=== PATIENT | male | born 1990 | race Caucasian/White ===

== ENCOUNTER 2021-09-14 18:11 | Emergency (ER) | payer OTHER ==
[~2021-09-14] VITALS: Ht 182.9 cm; Wt 93.0 kg
[2021-09-14 18:20] VITALS: BP 151/78
--- NOTE | 2021-09-14 19:12 | PHYS DOC ---
Past Medical History Additional Past Medical Histor: tongue cancer Past Surgical History: Other Additional Past Surgical Histo: tongue cancer, left lymph nodes General Adult EDM: Chief Complaint: LACERATION/AVULSION HPI: HPI: Patient is a 30-year-old male who presents to the emergency department reporting he was carrying steaks with a steak knife in his hand when the knife slipped and cut his left hand. Patient reports this happened his prior to arrival. Patient reports his last tetanus immunization is greater than 5 years ago. Patient denies numbness or tingling to his hands or fingers. Patient reports he covered the laceration site with a bandage and came straight to the emergency department. Patient denies other physical complaints or physical concerns. Patient states he is not homicidal, he is not suicidal. Review of Systems: Review of Systems: 14 body systems of review of systems have been reviewed. See HPI for pertinent positives and negative responses, otherwise all other systems are negative, nonpertinent or noncontributory. Constitutional: Negative except as outlined in HPI above. Skin: Negative except as outlined in HPI above. Eyes: Negative except as outlined in HPI above. HENT: Negative except as outlined in HPI above. Respiratory: Negative except as outlined in HPI above. Cardiovascular: Negative except as outlined in HPI above. GI: Negative except as outlined in HPI above. : Negative except as outlined in HPI above. Musculoskeletal: Negative except as outlined in HPI above. Integument: Negative except as outlined in HPI above. Neurologic: Negative except as outlined in HPI above. Endocrine: Negative except as outlined in HPI above. Lymphatic: Negative except as outlined in HPI above. Psychiatric: Negative except as outlined in HPI above. Heart Score: C/O Chest Pain: No Risk Factors: Risk Factors: DM, Current or recent (<one month) smoker, HTN, HLP, family history of CAD, obesity. Risk Scores: Score 0 - 3: 2.5% MACE over next 6 weeks - Discharge Home Score 4 - 6: 20.3% MACE over next 6 weeks - Admit for Clinical Observation Score 7 - 10: 72.7% MACE over next 6 weeks - Early Invasive Strategies Allergies: Allergies: Allergies Coded Allergies Type Severity Reaction Last Updated Verified Sulfa (Sulfonamide Antibiotics) Allergy Intermediate 09/14/21 Yes Physical Exam: PE: Constitutional: Well developed, well nourished, no acute distress, non-toxic appearance. 30-year-old male in no apparent distress. HENT: Normocephalic, atraumatic. Eyes: Conjunctiva normal, no discharge. Neck: Normal range of motion, no stridor. Cardiovascular: No cyanosis appreciated, distal cap refill less than 2 seconds. Lungs & Thorax: Patient is in no respiratory distress, no audible adventitious lung sounds appreciated. Abdomen: Nontender, no abnormalities noted. Skin: Warm, dry, no erythema, no rash. See extremity note for focused skin examination Back: No tenderness, no deformities. Extremities: No tenderness, no cyanosis, no clubbing, ROM intact, no edema. Except for left palm there is a partial-skin thickness 3.2 cm laceration over the thenar eminence, full AROM/PROM of all digits, distal cap refills less than 2 seconds equal bilateral upper extremities, 2+ radial pulses equal bilateral upper extremities. Neurologic: Alert and oriented X 3, normal motor function, normal sensory function, no focal deficits noted. Psychologic: Affect normal, judgement normal, mood normal. Current Patient Data: Vital Signs: Vital Signs Date Time Temp Pulse Resp B/P (MAP) Pulse Ox O2 Delivery O2 Flow Rate FiO2 09/14/21 18:20 98.3 76 18 151/78 (102) 99 Room Air 98.3 EKG: EKG: [] Radiology/Procedures: Radiology/Procedures: [] Course & Med Decision Making: Course & Med Decision Making Pertinent Labs and Imaging studies reviewed. (See chart for details) 30-year-old male, vital signs reviewed, presents emergency department concerning laceration of the left palm. Patient's ED presentation examination is consistent with patient's explanation of events. Please see laceration repair note. Discussed with patient home suture care, signs and symptoms of infectious process, return to ER precautions and concerns were reviewed, sutures out in 7 to 10 days, patient gave verbal understanding of and is amenable to ED discharge planning. Discussed with the patient all findings and diagnostic testing as well as the need to follow-up with their primary care provider for further evaluation and treatment or return to the ED if any new or worsening symptoms. Strict return precautions were also discussed at length, the patient voiced understanding and agreement with the discharge planning. The patient was nontoxic in appearance, in no apparent distress, and hemodynamically stable at the time of disposition. Dragon Disclaimer: Dragon Disclaimer: This electronic medical record was generated, in whole or in part, using a voice recognition dictation system. Laceration Repair Lac Repair Indication: Laceration of left palm Time: 1929 Confirmed: Patient, procedure, side, and site correct. Consent: Patient, has given verbal consent. Description/repair Procedure: The patient was placed in the appropriate position and anesthesia around the laceration was achieved with 4 cc 2% lidocaine without epinephrine. The area was then explored for foreign bodies, there are no foreign bodies, there were no visualized tendons as laceration did not extend through adipose tissues. The laceration was cleansed with chlorhexidine soap. Vigorously irrigated with pressurized 500 cc normal saline, the wound was then closed with 4 interrupted sutures using 4-0 nylon, the wound area was then dressed with bacitracin and Band-Aid by ED nursing staff. Complexity: Single layer. Post procedure exam: Circulation, motor, sensory examination intact, bleeding controlled. Total repaired wound length: 3.2 cm. Other Items: There were no other items. The patient tolerated the procedure well. Complications: There were no complications. Performed by: Eric Srinivasan, [employer] OPERATOR-C Supervision: was present for consult regarding the critical aspects of the procedure including closure and post procedure exam. Total time: 25 minutes. Departure Departure Impression: Primary Impression: Laceration of left hand Qualified Codes: S61.412A - Laceration without foreign body of left hand, initial encounter Disposition: HOME / SELF CARE / HOMELESS Condition: GOOD Referrals: AILYN CASIANO-RUDI (PCP) Patient Instructions: Laceration Care, Adult Additional Instructions: You were seen today in the emergency department for a laceration to your left hand. This required for sutures that will require removal in 7 to 10 days. The sutures will not dissolve on their own. As we discussed please cleanse daily with mild soap and water and apply antibiotic ointment and a bandage until sutures are removed. Do not soak hands in water such as swimming, soaking in hot tubs, do not do dishes till sutures are removed. While it is fine to gently wash your hands with mild soap and water and pat them dry, please do not soak your hands in water. You may use [id number] Tylenol and/or Motrin for any returning aches or pains. Your tetanus immunization was brought up to date today with a medication called Tdap, please update your immunization records accordingly. You may return to the emergency department or follow-up with your primary care provider for suture removal in 7 to 10 days. Thank you for visiting our Emergency Department. It was a pleasure taking care of you today in the emergency department and we appreciate you trusting us with your care. If any additional problems come up don't hesitate to return to visit us. Please follow up with your primary care provider so they can plan additional care if needed and know about the problem that you had. If symptoms worsen come back to the Emergency Department. Any concerning symptoms that start such as chest pain, shortness of air, weakness or numbness on one side of the body, running high fevers or any other concerning symptoms return to the ER. ERIC GARAY APRN September 14, 2021 19:12
[2021-09-14] MEDS ORDERED: LIDOCAINE 2% Multi-Dose 20 ML VIAL. IJ ONE (19:15)
[2021-09-14] MEDS ORDERED: BACITRACIN TOPICAL OINT PACKET. TP ONE (20:00)
[2021-09-14] MEDS ORDERED: DIPHTH,PERTUSS(ACELL),TET TOX 0.5 ML DISP.SYRIN. VAX IM ONE (20:00)
== END 2021-09-14 20:20 | disposition home or self-care (01) ==
LOC: ER 18:11
DX: S61.412A Laceration without foreign body of left hand, initial encounter (principal); Z88.2 Allergy status to sulfonamides; W26.0XXA Contact with knife, initial encounter; Y93.89 Activity, other specified; Y92.89 Other specified places as the place of occurrence of the external cause; Y99.8 Other external cause status
CPT/HCPCS: 12002; 90471; 90715; 99283